=== PATIENT | female | born 2000 | race Caucasian/White ===

== ENCOUNTER 2022-09-09 22:33 | Emergency (ER) | payer SELFPAY ==
[~2022-09-09] VITALS: Ht 167.6 cm; Wt 60.0 kg
[2022-09-09] MEDS ORDERED: LORAZEPAM 2MG/ML CPJ ONE (22:41)
[2022-09-10 00:53] VITALS: BP 107/69
== END 2022-09-10 00:53 | disposition home or self-care (01) ==
LOC: ER 22:33
DX: F19.10 Other psychoactive substance abuse, uncomplicated (principal)
CPT/HCPCS: 99283; J2060; Z7610